=== PATIENT | male | born 1970 | race Two or more races ===

== ENCOUNTER 2019-02-18 21:21 | Emergency (ER) | payer SELFPAY ==
[~2019-02-18] VITALS: Ht 162.6 cm; Wt 70.3 kg
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
[2019-02-18] MEDS ORDERED: HYDROCODONE/APAP 10/325MG 1 EA TABLET PO ONE (22:00)
[2019-02-18] MEDS ORDERED: TDAP [DIPH/PERTUSSIS/TET] 0.5 ML VIAL IM ONE ×2 (22:00→22:16)
[2019-02-18] MEDS ORDERED: HYDROCODONE/APAP 10/325MG 1 EA TABLET ONE (22:16)
[2019-02-18 23:58] VITALS: BP 142/81
== END 2019-02-18 23:58 | disposition home or self-care (01) ==
LOC: ER 21:23
DX: S02.2XXA Fracture of nasal bones, initial encounter for closed fracture (principal); S09.8XXA Other specified injuries of head, initial encounter; Y04.0XXA Assault by unarmed brawl or fight, initial encounter; Y93.89 Activity, other specified; Y92.89 Other specified places as the place of occurrence of the external cause; Y99.8 Other external cause status
CPT/HCPCS: 70486-TC; 90715